=== PATIENT | male | born 1995 | race Caucasian/White ===

== ENCOUNTER 2016-09-12 11:27 | Emergency (ER) | payer BC, OTHER ==
[2016-09-12 12:21] VITALS: BP 147/85
--- NOTE | 2016-09-12 13:05 | UC ---
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 wisdom teeth - Family History Known Family History: Positive: Hypertension - Social History Occupation: Student Lives: With Family Alcohol Use: Weekly Alcohol Amount: once a week Substance Use Type: None Smoking Status (MU): Never Smoked Tobacco Type: Smokeless Tobacco - Immunization History Most Recent Influenza Vaccination: None Most Recent Tetanus Shot: UTD Most Recent Pneumonia Vaccination: N/A Review of Systems Constitutional: Negative Skin: Other - TICK BITE LEFT UPPER THIGH Eyes: Negative ENT: Negative Respiratory: Negative Cardiovascular: Negative Gastrointestinal: Negative Genitourinary: Negative Motor: Negative Neurovascular: Negative Musculoskeletal: Negative Neurological: Negative Psychological: Negative All Other Systems Reviewed And Are Negative: Yes Physical Exam Triage Information Reviewed: Yes Appearance: Well-Appearing, No Pain Distress, Well-Nourished Vital Signs: Initial Vital Signs Temp 98.6 F 09/12/16 12:16 Pulse 81 09/12/16 12:16 Resp 18 09/12/16 12:16 BP 147/85 09/12/16 12:16 Pulse Ox 100 09/12/16 12:16 Vital Signs Reviewed: Yes Eye Exam: Normal ENT Exam: Normal ENT: Positive: Normal ENT inspection, Hearing grossly normal, Pharynx normal, TMs normal Dental Exam: Normal Neck exam: Normal Neck: Positive: Supple, Nontender, No Lymphadenopathy. Negative: Nuchal Rigidity Respiratory Exam: Normal Respiratory: Positive: Chest non-tender, Lungs clear, Normal breath sounds, No respiratory distress Cardiovascular Exam: Normal Cardiovascular: Positive: RRR, No Murmur, Pulses Normal, Brisk Capillary Refill Abdominal Exam: Normal Musculoskeletal Exam: Normal Musculoskeletal: Positive: Strength Intact, ROM Intact, No Edema Neurological Exam: Normal Psychological Exam: Normal Skin: Positive: rashes - TICK BITE LEFT UPPER THIGH; NO ERRETHEMA Course/Dx - Differential Dx - Multi-Symptom Differential Diagnoses: Other - TICK BITE Provider Diagnoses: TICK BITE LEFT THIGH; TICK BITE PROPHYLAXIS Discharge - Discharge Plan Condition: Stable Disposition: HOME Prescriptions: DOXYcycline CAP(*) [DOXYcycline 100MG CAP(*)] 200 mg PO ONCE #2 cap Patient Education Materials: Tick Bite (ED) Referrals: Chiqui Orozco MD [Primary Care Provider] -
== END 2016-09-12 12:41 | disposition home or self-care (01) ==
LOC: UCCORT 11:27
DX: S70.362A Insect bite (nonvenomous), left thigh, initial encounter (principal); W57.XXXA Bitten or stung by nonvenomous insect and other nonvenomous arthropods, initial encounter; Y93.9 Activity, unspecified; Y92.9 Unspecified place or not applicable
CPT/HCPCS: 99212; G0463

== ENCOUNTER 2017-07-27 11:00 | Emergency (ER) | payer SELFPAY ==
[2017-07-27 12:11] VITALS: BP 134/78
--- NOTE | 2017-07-27 12:29 | ED ---
Throat Pain/Nasal Congestion - HPI Summary HPI Summary: 22 yr old male with onset of right ear pain 6 days ago, and now sore throat for four days. Denies fever, chills. No trouble swallowing or breathing. No other complaints. - History of Current Complaint Chief Complaint: UCRespiratory Time Seen by Provider: 07/27/17 12:08 - Allergies/Home Medications Allergies/Adverse Reactions: Allergies Allergy/AdvReac Type Severity Reaction Status Date / Time No Known Allergies Allergy Verified 07/27/17 12:12 Home Medications: Home Medications Acetaminophen/Dextromethorphan [Cold & Cough Daytime 1000-30 mg/30Ml] 1 liq PO ONCE PRN 07/27/17 [History Confirmed 07/27/17] PMH/Surg Hx/FS Hx/Imm Hx - Surgical History Surgery Procedure, Year, and Place: appendectomy Infectious Disease History: No Infectious Disease History: Denies: Traveled Outside the [place] in Last 30 Days - Family History Known Family History: Positive: Hypertension - Social History Alcohol Use: Weekly Alcohol Amount: once a week Substance Use Type: Reports: None Smoking Status (MU): Never Smoked Tobacco Type: Smokeless Tobacco Amount Used/How Often: 1 can per day Length of Time of Smoking/Using Tobacco: since age 19 Review of Systems Positive: Sore Throat, Ear Ache All Other Systems Reviewed And Are Negative: Yes Physical Exam Triage Information Reviewed: Yes Vital Signs On Initial Exam: Initial Vitals Temp Pulse Resp BP Pulse Ox 98.5 F 83 16 134/78 100 07/27/17 12:03 07/27/17 12:03 07/27/17 12:03 07/27/17 12:03 07/27/17 12:03 Vital Signs Reviewed: Yes Appearance: Positive: Well-Appearing, No Pain Distress Skin: Positive: Warm, Skin Color Reflects Adequate Perfusion Head/Face: Positive: Normal Head/Face Inspection Eyes: Positive: EOMI ENT: Positive: Pharyngeal erythema, TM red - bilateal right greater than left. Negative: Nasal congestion, Nasal drainage Neck: Positive: Nontender, No Lymphadenopathy Respiratory/Lung Sounds: Positive: Clear to Auscultation, Breath Sounds Present Cardiovascular: Positive: RRR. Negative: Murmur Abdomen Description: Positive: Nontender Musculoskeletal: Positive: Strength/ROM Intact Neurological: Positive: Sensory/Motor Intact, Alert, Oriented to Person Place, Time, CN Intact II-III Psychiatric: Positive: Normal AVPU Assessment: Alert - [place] Coma Scale Best Eye Response: 4 - Spontaneous Best Motor Response: 6 - Obeys Commands Best Verbal Response: 5 - Oriented Coma Scale Total: 15 Diagnostics - Vital Signs Vital Signs Temp Pulse Resp BP Pulse Ox 07/27/17 12:03 98.5 F 83 16 134/78 100 - Laboratory Lab Statement: Any lab studies that have been ordered have been reviewed, and results considered in the medical decision making process. EENT Course/Dx - Course Course Of Treatment: 22 yr old with bilateral OM and pharyngitis. Rx with amox - Diagnoses Provider Diagnoses: Otitis media, Pharyngitis Discharge - Discharge Plan Condition: Good Disposition: HOME Prescriptions: Amoxicillin PO (*) [Amoxicillin 500 MG CAP*] 500 mg PO TID #30 cap Patient Education Materials: Ear Infection (ED) Referrals: Chiqui Orozco MD [Primary Care Provider] - 4 Days
== END 2017-07-27 12:30 | disposition home or self-care (01) ==
LOC: UCCORT 11:00
DX: H66.93 Otitis media, unspecified, bilateral (principal); J02.9 Acute pharyngitis, unspecified; F17.220 Nicotine dependence, chewing tobacco, uncomplicated
CPT/HCPCS: 99212; G0463

== ENCOUNTER 2018-02-11 09:42 | Emergency (ER) | payer BC, OTHER ==
--- NOTE | 2018-02-11 11:16 | UC ---
Abdominal Pain Male HPI - HPI Summary HPI Summary: 23-year-old male with history of anxiety currently taking amitriptyline presents with episode of left lower quadrant abdominal pain for approximately 2 days. 3 days prior, patient had a night of heavy drinking, has had loose stools over the past one and half days. Denies any hematochezia or melena. No nausea or vomiting. In no acute distress. Pain located in the left lower quadrant, nonradiating, described as sharp, intermittent, moderate in severity. Denies any scrotal pain or swelling. - History of Current Complaint Chief Complaint: UCGI Stated Complaint: STOMACH ACHE Pain Intensity: 3 - Allergies/Home Medications Allergies/Adverse Reactions: Allergies Allergy/AdvReac Type Severity Reaction Status Date / Time No Known Allergies Allergy Verified 02/11/18 10:21 Home Medications: Home Medications Amitriptyline TAB* [Elavil TAB*] 25 mg PO BEDTIME 02/11/18 [History Confirmed ] PMH/Surg Hx/FS Hx/Imm Hx - Additional Past Medical History Additional PMH: Anxiety Previously Healthy: Yes - Surgical History Surgical History: Yes Surgery Procedure, Year, and Place: appendectomyWISDOM TEETH EXTRACTIONS - Family History Known Family History: Positive: Hypertension - Social History Alcohol Use: Weekly Alcohol Amount: TWICE A WEEK Substance Use Type: None Smoking Status (MU): Heavy Every Day Tobacco Smoker Type: Smokeless Tobacco Amount Used/How Often: 1 can per day Length of Time of Smoking/Using Tobacco: since age 19 - Immunization History Most Recent Influenza Vaccination: None Most Recent Tetanus Shot: UTD Most Recent Pneumonia Vaccination: N/A Review of Systems Constitutional: Negative Skin: Negative Eyes: Negative ENT: Negative Respiratory: Negative Cardiovascular: Negative Gastrointestinal: Abdominal Pain Genitourinary: Negative Neurovascular: Negative Musculoskeletal: Negative Neurological: Negative Psychological: Anxious All Other Systems Reviewed And Are Negative: Yes Physical Exam - Summary Physical Exam Summary: Gen: alert, in no acute distress HEENT: EOMI, normocephalic, atruamatic Neck: supple, no masses CV: Normal s1 s2, no murmurs Resp: normal breath sounds b/l GI: minimal LLQ tenderness without shahid or guarding. No masses. Normal bowel sounds. No evidence of organomegaly. Musculoskeletal: normal ROM all 4 extremities Neuro: no obvious focal neurological deficits Skin: no rash Lymph: no lymphadenopathy : no scrotal tenderness or swelling. no hernias. Psych: appropriate affect, oriented Triage Information Reviewed: Yes Vital Signs: Initial Vital Signs Temp 37.1 C 02/11/18 10:23 Pulse 97 02/11/18 10:23 Resp 20 02/11/18 10:23 BP 152/97 02/11/18 10:23 Pulse Ox 100 02/11/18 10:23 Abd Pain Male Course/Dx - Course Course Of Treatment: Examination benign, patient in no acute distress and has been tolerating by mouth normally, normal bowel sounds. No signs of acute abdomen, patient instructed to follow up with primary care physician within the week and to report to the emergency department for any worsening or concerning symptoms. Patient is in no acute distress, walking normally, tolerating by mouth, agrees to and understands discharge instructions. - Differential Dx/Clinical Impression Provider Diagnoses: Left lower quadrant abdominal pain Discharge - Sign-Out/Discharge Documenting (check all that apply): Patient Departure All imaging exams completed and their final reports reviewed: No Studies - Discharge Plan Condition: Stable Disposition: HOME Prescriptions: Al Hydrox/Mg Hydrox/Simet LIQ* [Maalox Plus*] 30 ml PO Q6H PRN 3 Days #1 udc PRN Reason: Indigestion Patient Education Materials: Abdominal Pain (ED) Referrals: No Primary Care Phys,NOPCP [Primary Care Provider] - Kimberly Duarte MD [Medical Doctor] - Norbert Godfrey MD [Medical Doctor] - Leonel Moses DO [Medical Doctor] - Mar Chen [Physician Company Controller] - Additional Instructions: PLEASE TAKE MEDICATIONS DIRECTED PLEASE MAKE AN APPOINTMENT TO BE SEEN BY A PRIMARY CARE DOCTOR WITHIN 1 WEEK PLEASE REPORT TO THE ER FOR ANY WORSENING OR CONCERNING SYMPTOMS - Billing Disposition and Condition Condition: STABLE Disposition: Home
[2018-02-11 12:08] VITALS: BP 152/97
== END 2018-02-11 11:30 | disposition home or self-care (01) ==
LOC: UCCORT 09:42
DX: R10.32 Left lower quadrant pain (principal); F41.9 Anxiety disorder, unspecified; F17.220 Nicotine dependence, chewing tobacco, uncomplicated
CPT/HCPCS: 99212; G0463